=== PATIENT | female | born 1955 ===

== ENCOUNTER 2020-04-28 05:35 | Day surgery (SDC) | payer OTHER ==
[~2020-04-28 05:35] MED LIST: KEPPRA500 MG PO; LASIX20 MG PO; PRE PROTEIN PO; SEROQUEL50 MG PO; SIMVAST PO; SODIUM BICAR PO; SYNTHROID50 MCG PO; VITAMIN D3 PO; ZOLOFT50 MG PO
[2020-04-28] MEDS ORDERED: TYLENOL325 M1 PO (08:38)
[2020-04-28] MEDS ORDERED: CIPRO500 MG PO (08:39)
== END 2020-04-28 11:05 | disposition home or self-care (01) ==
LOC: CIR.AMB 05:35
PROVIDERS: ATTEND Surgery
DX: L72.0 Epidermal cyst (principal); Z20.822 Contact with and (suspected) exposure to COVID-19